=== PATIENT | male | born 1960 | race Caucasian/White ===

== ENCOUNTER 2022-03-30 12:42 | Outpatient (CLI) | payer OTHER | END 2022-03-30 12:43 | disposition home or self-care (01) | LOC: CSHCP 12:42 | PROVIDERS: ATTEND Internal Medicine Critical Care Medicine | DX: J44.1 Chronic obstructive pulmonary disease with (acute) exacerbation (principal); J98.8 Other specified respiratory disorders | CPT/HCPCS: 94060; 94726; 94729; 94760 ==